=== PATIENT | female | born 1990 | race Caucasian/White ===

== ENCOUNTER 2019-10-03 09:21 | Emergency (ER) | payer OTHER ==
[~2019-10-03] VITALS: Ht 160 cm; Wt 60.3 kg
[2019-10-03 09:33] VITALS: BP 131/87
--- NOTE | 2019-10-03 09:36 | NUR ---
PT TO BED 12 WITH STEADY GAIT
--- NOTE | 2019-10-03 09:49 | NUR ---
29YO F C/O HEADACHE X 2 DAYS. PATIENT WITH KNOWN CASE OF MIGRAINE. STATES 9/10 THROBBING PAIN, +N/V, +NECK PAIN. PT TOOK IMITREX AT 12MN AND EXCEDRIN AT 730 AM WITH NO RELIEF. PT ALSO EXPERIENCING BILATERAL LEG PAIN. PT IS AO X 4, PERRL 4MM. VSS; PATIENT POSITIONED FOR COMFORT; HOB ELEVATED; BEDRAILS UP X2; BED DOWN. ER MD MADE AWARE OF PT STATUS. ALLERGIES: IBUPROFEN
[2019-10-03] MEDS ORDERED: MORPHINE SULFATE 2 MG/ML SYR IM ONE (10:00)
[2019-10-03] MEDS ORDERED: PROCHLORPERAZINE 10 MG/2 ML VIAL IM ONE (10:00)
[2019-10-03] MEDS ORDERED: diphenhydrAMINE 50 MG CAP PO ONE (10:00)
[2019-10-03] MEDS ORDERED: fentaNYL 0.05 MG/ML VIAL IM ONE (12:25)
--- NOTE | 2019-10-03 13:30 | NUR ---
PATIENT ABLE TO AMBULATE TO RESTROOM WITHOUT DIZZINESS/STUMBLING. ERMD MADE AWARE. PT READY FOR DISCHARGE.
[2019-10-03 14:09] VITALS: BP 102/56
--- NOTE | 2019-10-03 14:10 | NUR ---
Patient discharged with v/s stable. Written and verbal after care instructions given and explained. Patient alert, oriented and verbalized understanding of instructions. Ambulatory with steady gait. All questions addressed prior to discharge. ID band removed. Patient advised to follow up with PMD. Rx of TORADOL, ZOFRAN given. Patient educated on indication of medication including possible reaction and side effects. Opportunity to ask questions provided and answered.
== END 2019-10-03 14:10 | disposition home or self-care (01) ==
LOC: MED 09:21
DX: G43.909 Migraine, unspecified, not intractable, without status migrainosus (principal); R11.2 Nausea with vomiting, unspecified; H53.149 Visual discomfort, unspecified; Z88.8 Allergy status to other drugs, medicaments and biological substances
CPT/HCPCS: 96372; 99283; J0780; J2270; J3010; Q0163

== ENCOUNTER 2021-02-15 10:09 | Emergency (ER) | payer OTHER ==
[~2021-02-15] VITALS: Ht 157.5 cm; Wt 56.7 kg
[2021-02-15 10:17] VITALS: BP 147/86
[2021-02-15] MEDS ORDERED: MORPHINE SULFATE 4 MG/ML SYR IM ONE (10:40)
[2021-02-15] MEDS ORDERED: diazePAM 5 MG TAB PO ONE (11:45)
[2021-02-15] MEDS ORDERED: MORPHINE SULFATE 4 MG/ML SYR IVP ONE (11:50)
[2021-02-15] MEDS ORDERED: NACL 0.9% 1,000 ML IV ONE (11:55)
[2021-02-15] MEDS ORDERED: ACET-8386 PO (12:02)
[2021-02-15] MEDS ORDERED: LID5T TP (12:02)
[2021-02-15 12:46] VITALS: BP 126/80
== END 2021-02-15 12:46 | disposition home or self-care (01) ==
LOC: MED 10:09
DX: M54.5 Low back pain (principal); G43.909 Migraine, unspecified, not intractable, without status migrainosus; Z88.6 Allergy status to analgesic agent
CPT/HCPCS: 72080; 81002; 81025; 96372; 96374; 99284; J2270; J7030

== ENCOUNTER 2021-03-28 12:29 | Emergency (ER) | payer OTHER ==
[~2021-03-28] VITALS: Ht 157.5 cm; Wt 57.6 kg
[~2021-03-28 12:29] MED LIST: ACET-8386 PO; LID5T TP
[2021-03-28 13:35] VITALS: BP 156/75
[2021-03-28] MEDS ORDERED: LID5T TP (15:47)
[2021-03-28] MEDS ORDERED: PRED20TA5 PO (15:47)
[2021-03-28] MEDS ORDERED: ACET-8386 PO (15:47)
[2021-03-28 16:32] VITALS: BP 156/75
== END 2021-03-28 16:33 | disposition home or self-care (01) ==
LOC: MED 12:29
DX: M54.12 Radiculopathy, cervical region (principal); M54.5 Low back pain; R31.9 Hematuria, unspecified; Z88.6 Allergy status to analgesic agent; Z79.899 Other long term (current) drug therapy
CPT/HCPCS: 81002; 81025; 99283

== ENCOUNTER 2023-01-22 12:24 | Emergency (ER) | payer OTHER ==
[~2023-01-22] VITALS: Ht 157.5 cm; Wt 66.7 kg
[~2023-01-22 12:24] MED LIST changes: -ACET-8386 PO; +ACET-8905 PO; +PRED20TA5 PO
[2023-01-22 13:21] VITALS: BP 142/90
[2023-01-22] MEDS ORDERED: NACL 0.9% 1,000 ML IV ONE (14:00)
[2023-01-22] MEDS ORDERED: diphenhydrAMINE 50 MG/ML VIAL IVP ONE (14:00)
[2023-01-22] MEDS ORDERED: PROCHLORPERAZINE 10 MG/2 ML VIAL IVP ONE (14:00)
[2023-01-22 14:34] LABS: BASOPHILS # (AUTO) 0.1 K/uL (0.00-0.22); BASOPHILS % (AUTO) 0.7 % (0.0-2.0); EOSINOPHILS % (AUTO) 0.3 % (0.0-4.0); HEMATOCRIT 41.3 % (36-48); HEMOGLOBIN 14.1 g/dL (12.0-16.0); LYMPHOCYTES # (AUTO) 1.2 K/uL (2.5-16.5); LYMPHOCYTES % (AUTO) 10.7 % (20.5-51.1); MEAN CORPUSCULAR HEMOGLOBIN 31 pg (27-31); MEAN CORPUSCULAR HGB CONC 34 g/dL (33-37); MEAN CORPUSCULAR VOLUME 89.5 fL (80-94); MONOCYTES # (AUTO) 0.5 K/uL (0.8-1.0); MONOCYTES % (AUTO) 4.2 % (1.7-9.3); NEUTROPHILS # (AUTO) 9.5 K/uL (1.8-7.7); NEUTROPHILS % (AUTO) 84.1 % (42.2-75.2); PLATELET COUNT (AUTO) 251 K/uL (140-450); RED BLOOD CELL COUNT(AUTO) 4.61 MIL/uL (4.20-5.40); WHITE BLOOD COUNT (AUTO) 11.2 K/uL (4.8-10.8)
[2023-01-22 14:50] LABS: ANION GAP 15.7 (8-16); CREATININE 0.9 mg/dL (0.6-1.3); POTASSIUM 3.7 mmol/L (3.5-5.1)
[2023-01-22] MEDS ORDERED: diphenhydrAMINE 50 MG/ML VIAL ONE (16:38)
[2023-01-22] MEDS ORDERED: PROCHLORPERAZINE 10 MG/2 ML VIAL ONE (16:38)
--- NOTE | 2023-01-22 18:30 | NUR ---
IV removed, catheter intact and site benign. Applied folded 4x4 gauze and tape to stop bleeding.
[2023-01-22 18:34] VITALS: BP 110/74
--- NOTE | 2023-01-22 18:34 | NUR ---
Patient discharged with v/s stable. Written and verbal after care instructions given. Patient verbalized understanding. Ambulatory with steady gait. All questions addressed prior to discharge. Advised to follow up with PMD.
== END 2023-01-22 18:34 | disposition home or self-care (01) ==
LOC: MED 12:24
DX: G43.909 Migraine, unspecified, not intractable, without status migrainosus (principal); Z88.5 Allergy status to narcotic agent; Z79.899 Other long term (current) drug therapy
CPT/HCPCS: 36415; 80048; 81025; 85025; 96361; 96374; 96375; 99284; J0780; J1200; J7030

== ENCOUNTER 2023-07-23 22:39 | Emergency (ER) | payer OTHER ==
[~2023-07-23] VITALS: Ht 157.5 cm; Wt 71.7 kg
[2023-07-23 23:02] VITALS: BP 139/96; PULSE 93; RESP 20; TEMP 97; O2SAT 97
[2023-07-24] MEDS ORDERED: ONDANSETRON 4 MG/2 ML VIAL IVP ONE (00:35)
[2023-07-24] MEDS ORDERED: MORPHINE SULFATE 4 MG/ML SYR IVP ONE ×2 (00:35→01:40)
[2023-07-24] MEDS ORDERED: NACL 0.9% 1,000 ML IV ONE (00:35)
[2023-07-24 00:53] LABS: APPEARANCE,URINE CLEAR (CLEAR); BILIRUBIN,URINE NEGATIVE (NEGATIVE); BLOOD, URINE TRACE-I (NEGATIVE); COLOR,URINE YELLOW (YELLOW); LEUKOCYTE ESTERASE ,URINE NEGATIVE (NEGATIVE); NITRITE, URINE NEGATIVE (NEGATIVE); PH,URINE 7.5 (5.0-9.0); PROTEIN,URINE TRACE (NEGATIVE); UGLUCOSE NEGATIVE (NEGATIVE); UROBILINOGEN,URINE 0.2 EU/dL (0.2 - 1)
[2023-07-24 01:01] LABS: BASOPHILS # (AUTO) 0.1 K/uL (0.00-0.22); BASOPHILS % (AUTO) 1.1 % (0.0-2.0); EOSINOPHILS # (AUTO) 0.1 K/uL (0-0.4); EOSINOPHILS % (AUTO) 0.5 % (0.0-4.0); HEMATOCRIT 39.1 % (36-48); HEMOGLOBIN 13.3 g/dL (12.0-16.0); LYMPHOCYTES # (AUTO) 1.8 K/uL (2.5-16.5); MEAN CORPUSCULAR HEMOGLOBIN 30 pg (27-31); MEAN CORPUSCULAR HGB CONC 34 g/dL (33-37); MEAN CORPUSCULAR VOLUME 89.2 fL (80-94); MONOCYTES # (AUTO) 0.6 K/uL (0.8-1.0); MONOCYTES % (AUTO) 5.6 % (1.7-9.3); NEUTROPHILS # (AUTO) 8.1 K/uL (1.8-7.7); NEUTROPHILS % (AUTO) 75.8 % (42.2-75.2); PLATELET COUNT (AUTO) 305 K/uL (140-450); RED BLOOD CELL COUNT(AUTO) 4.38 MIL/uL (4.20-5.40); RED CELL DISTRIBUTION WIDTH 13.2 % (11.6-13.7); WHITE BLOOD COUNT (AUTO) 10.7 K/uL (4.8-10.8)
[2023-07-24 01:07] LABS: BACTERIA,URINE >30 (MANY) /HPF (None Seen); MUCUS,URINE 1+ /LPF (None Seen); RBC,URINE 0-5 /HPF (0-5); WBC,URINE 0-5 /HPF (0-5)
[2023-07-24 01:30] LABS: ALBUMIN 4.2 g/dL (3.4-5.0); ANION GAP 15.8 (8-16); CALCIUM 9.2 mg/dL (8.5-10.1); CARBON DIOXIDE 27.2 mmol/L (21-32); CREATININE 0.8 mg/dL (0.6-1.3); TOTAL BILIRUBIN 0.5 mg/dL (0.0-1.0); TOTAL PROTEIN, SERUM 7.7 g/dL (6.4-8.2)
[2023-07-24] MEDS ORDERED: diphenhydrAMINE 50 MG/ML VIAL IVP ONE (01:40)
[2023-07-24] MEDS ORDERED: METOCLOPRAMIDE 10 MG/2 ML INJ VIAL IVP ONE (01:40)
[2023-07-24] MEDS ORDERED: KETAMINE HCL 50 mg/5 mL UD SYRINGE IV ONE (04:25)
[2023-07-24] MEDS ORDERED: METO-485 PO (04:51)
[2023-07-24 05:40] VITALS: BP 108/67; PULSE 91; RESP 20; TEMP 97; O2SAT 97
== END 2023-07-24 05:40 | disposition home or self-care (01) ==
LOC: MED 22:39
DX: R51.9 Headache, unspecified (principal); R11.10 Vomiting, unspecified; Z98.890 Other specified postprocedural states; Z79.899 Other long term (current) drug therapy; Z88.6 Allergy status to analgesic agent
CPT/HCPCS: 36415; 70496; 70498; 80053; 81001; 81025; 85025; 87086; 96361; 96374; 96375; 96376; 99285; J1200; J2270; J2405; J2765; J7030; Q9967

== ENCOUNTER 2024-01-17 14:36 | Emergency (ER) | payer OTHER ==
[~2024-01-17] VITALS: Ht 157.5 cm; Wt 65.8 kg
[~2024-01-17 14:36] MED LIST changes: +METO-485 PO
[2024-01-17 14:51] VITALS: BP 123/76; PULSE 90; RESP 22; TEMP 98.4; O2SAT 100
[2024-01-17] MEDS ORDERED: LID5T TP (15:25)
[2024-01-17] MEDS ORDERED: CYCL-711 PO (15:25)
[2024-01-17] MEDS ORDERED: ACET-8905 PO (15:26)
[2024-01-17] MEDS: LIDOCAINE 5% 1 EA PATCH TP ONE (15:33)
== END 2024-01-17 15:39 | disposition home or self-care (01) ==
LOC: MED 14:36
DX: M54.50 Low back pain, unspecified (principal); Z98.890 Other specified postprocedural states; Z79.1 Long term (current) use of non-steroidal anti-inflammatories (NSAID); Z79.899 Other long term (current) drug therapy; Z88.5 Allergy status to narcotic agent
CPT/HCPCS: 99283